=== PATIENT | male | born 1955 | race Caucasian/White ===

== ENCOUNTER 2025-01-17 17:42 | Outpatient (REF) | payer MEDICARE, SELFPAY ==
[2025-01-17 14:52] LABS: HCT 41.3 % (40.0-50.0); HGB 13.6 g/dL (13.5-17.5); MCH 29.5 pg (27.0-33.0); MCHC 32.9 % (32.0-36.0); MCV 90 fL (80-95); MPV 9.8 fL (8.0-11.0); Platelet Count 322 10^3/uL (130-400); RBC 4.61 10^6/uL (4.36-5.78); RDW 13.5 % (11.8-14.1); RDW-SD 44.5 fL; WBC 7.85 10^3/uL (4.4-10.8)
[2025-01-17 15:09] LABS: Hemoglobin A1C 5.6 % (<5.7)
[2025-01-17 15:16] LABS: ALT 24 U/L (16-63); AST 15 U/L (15-37); Albumin 3.3 g/dL (3.4-5.0); Alkaline Phosphatase 67 U/L (46-116); Anion Gap 4.8 mmol/L (3-11); BUN 20 mg/dL (7-18); Bilirubin, Total 0.4 mg/dL (0.2-1.0); CO2 28.2 mmol/L (21.0-32.0); CREATININE 0.9 mg/dL (0.70-1.30); Calcium 8.7 mg/dL (8.5-10.1); Calculated LDL 173 mg/dL (<100); Chloride 106 mmol/L (98-107); Cholesterol 242 mg/dL (<200); Estimated GFR 91.88 (mL/min/1.73m2); Glucose 100 mg/dL (74-106); HDL Cholesterol 49 mg/dL (>or=40); Potassium 4.6 mmol/L (3.5-5.1); Sodium 139 mmol/L (136-145); Total Protein 6.7 g/dL (6.4-8.2); Triglyceride 102 mg/dL (<150)
[2025-01-18 18:40] LABS: PSA, Screening 0.4 ng/mL (<=6.5)
== END 2025-01-17 17:43 | disposition home or self-care (01) ==
LOC: NCHCN 17:42
PROVIDERS: Visit Provider Physician Assistant
DX: Z13.6 Encounter for screening for cardiovascular disorders (principal); Z13.1 Encounter for screening for diabetes mellitus; Z13.220 Encounter for screening for lipoid disorders; Z12.5 Encounter for screening for malignant neoplasm of prostate
CPT/HCPCS: 80053; 80061; 84153; 85027; 83036

== ENCOUNTER 2025-07-19 09:35 | Outpatient (REF) | payer MEDICARE, SELFPAY ==
[2025-07-19 15:22] LABS: Cholesterol 265 mg/dL (<200); HDL Cholesterol 64 mg/dL (>or=40)
== END 2025-07-19 09:36 | disposition home or self-care (01) ==
LOC: NCHCN 09:35
PROVIDERS: PCP Physician Assistant; Visit Provider Physician Assistant
DX: E78.2 Mixed hyperlipidemia (principal)
CPT/HCPCS: 80061